=== PATIENT | female | born 1995 | race Caucasian/White ===

== ENCOUNTER 2018-12-12 20:33 | Inpatient (IN) | payer BC, OTHER ==
[2018-12-12] MEDS ORDERED: Zolpidem Tartrate 5 MG TAB PO PRN (22:26)
[2018-12-12] MEDS ORDERED: Butorphanol Tartrate 1 MG/ML VIAL SLOW IVP PRN (22:26)
[2018-12-12] MEDS ORDERED: NS / Oxytocin 40 units/1000ml 1,000 ML IV PRN (22:26)
[2018-12-12] MEDS ORDERED: Carboprost 250 MCG/ML AMP IM PRN (22:26)
[2018-12-12] MEDS ORDERED: Promethazine HCl 25 MG/ML VIAL IM PRN (22:26)
[2018-12-12] MEDS ORDERED: Ondansetron PF 4 MG/2 ML Vial IVP PRN (22:26)
[2018-12-12] MEDS ORDERED: Lidocaine 1% (PF) 30 ML VIAL SC PRN (22:30)
[2018-12-12] MEDS ORDERED: HYDROcodone/Acetaminophen 5/325 mg Tablet PO PRN ×2 (22:30)
[2018-12-12] MEDS ORDERED: Ibuprofen 800 MG TAB PO PRN (22:30)
[2018-12-12] MEDS ORDERED: Misoprostol 200 MCG TAB PR PRN (22:30)
[2018-12-12] MEDS ORDERED: NS w/ Oxytocin 10 units 500 ML IV SCH (22:30)
[2018-12-12] MEDS ORDERED: Methylergonovine 0.2 MG/ML VIAL IM PRN (22:30)
[2018-12-12] MEDS ORDERED: Diphenoxylate HCl/Atropine Tablet PO PRN ×2 (22:30)
--- NOTE | 2018-12-12 22:36 | PDOC.LDHP ---
Labor and Delivery H&P Chief complaint: scheduled induction HPI: 23 y/o at 39w 4d presents for term induction of labor. Due date: 12/15/18 Grav: 1 Para: 0 Current complications: none Abnormal US findings: No Current medications: pre- vitamins Allergies/Adverse Reactions: Allergies Allergy/AdvReac Type Severity Reaction Status Date / Time No Known Allergies Allergy Verified 07/10/13 17:38 - Physical Exam Vital signs reviewed and normal: yes General: NAD, resting Lungs: nonlabored breathing Abdomen: gravid Extremeties: no edema FHT: category 1 - Assessment L&D Assessment: elective induction at term - Plan Plan: admit to L&D, cervical ripening
[2018-12-12] MEDS ORDERED: Misoprostol 100 MCG TAB ONE (22:45)
[2018-12-12 22:51] LABS: Hemoglobin 11.2 g/dL (12.0-16.0); Mean Corpuscular HGB CONC 32.6 g/dL (32.0-36.0); Mean Corpuscular Hemoglobin 30.4 pg (27.0-31.0); Mean Corpuscular Volume 93.1 fL (78.0-98.0); Mean Platelet Volume 9.6 fL (7.4-10.4); Platelet Count 246 thou/uL (130-400); White Blood Cell (WBC) Count 9.4 thou/uL (4.8-10.8)
[2018-12-12] MEDS: Misoprostol 100 MCG TAB VAG SCH (22:53)
[2018-12-12] MEDS: Lactated Ringer's 1,000 ML IV SCH (22:55)
[2018-12-12 23:28] VITALS: BMI 35.4
[2018-12-12 23:32] LABS: Syphilis Antibody Nonreactive (Nonreactive); Syphilis Antibody Index 0.04 S/CO (<1.00 Non-Reactive)
[2018-12-12 23:33] LABS: HBSAg Index 0.49 S/CO (0-0.99); Hep B Surf Ag Non-Reactive S/CO (NonReactive)
[2018-12-13] MEDS: Misoprostol 100 MCG TAB VAG SCH ×2 (02:47→06:46)
[2018-12-13] MEDS: Lactated Ringer's 1,000 ML IV SCH ×2 (06:05→13:43)
[2018-12-13] MEDS: NS w/ Oxytocin 10 units 500 ML IV SCH ×3 (06:45→17:21)
[2018-12-13] MEDS ORDERED: Fentanyl 4 mcg/Bup 0.1% Cadd 100 ML ONE ×2 (12:10→18:49)
[2018-12-13] MEDS ORDERED: Lidocaine 1.5%/Epinephrine 1:200,000 5 ML AMPUL IJ ONE (12:56)
[2018-12-13] MEDS ORDERED: Ondansetron PF 4 MG/2 ML Vial IVP PRN (13:11)
[2018-12-13] MEDS ORDERED: Lactated Ringer's 500 ML IV PRN (13:11)
[2018-12-13] MEDS ORDERED: Acetaminophen 325 MG TAB PO PRN (13:11)
[2018-12-13] MEDS ORDERED: Eucerin (Mineral Oil/Petrolatum,White) 30 gm Jar TOP PRN (13:11)
[2018-12-13] MEDS ORDERED: diphenhydrAMINE 50 MG/ML VIAL IVP PRN (13:11)
[2018-12-13] MEDS ORDERED: Promethazine HCl 25 MG/ML VIAL IM PRN (13:11)
[2018-12-13] MEDS ORDERED: Naloxone HCl 0.4 mg/ml Vial IVP PRN ×2 (13:11)
[2018-12-13] MEDS ORDERED: ePHEDrine/0.9% NaCl/PF SYRINGE 50 mg/10 ml SLOW IVP PRN (13:11)
[2018-12-13] MEDS ORDERED: Communication Order-Pharmacy FS SCH (13:15)
[2018-12-13] MEDS: Fentanyl 4 mcg/Bupivacaine 0.1% Cassette 100 ML EPIDURAL SCH ×2 (13:36→18:53)
[2018-12-14] MEDS ORDERED: Misoprostol 200 MCG TAB ONE (00:17)
--- NOTE | 2018-12-14 00:48 | PDOC.PP ---
Post Progress Note Post Day #: 1 PO intake tolerated: yes Weight Weight 240 lb - Physical Examination General: NAD Cardiovascular: no m/r/g, RRR Respiratory: clear to auscultation bilaterally, non-labored breathing Abdominal: + bowel sounds, lochia, no distention, appropriately TTP Extremities: negative homans (B) Neurological: no gross focal deficits Psychiatric: A&Ox3, normal affect Result Diagrams: 12/12/18 22:14 Additional Labs: Post Labs Blood Type A POSITIVE 12/12/18 22:14 Hep Bs Antigen Non-Reactive S/CO (NonReactive) 12/12/18 22:14 - Assessment/Plan Pt s/p labor and delivery late yesterday evening. Cytotec 800mcg placed OR and pt is stable. Continue routine care.
[2018-12-14] MEDS ORDERED: Bisacodyl 10 MG SUPP PR PRN (02:57)
[2018-12-14] MEDS ORDERED: Benzocaine/Menthol 20-0.5% 60 ML CAN TOP PRN (02:57)
[2018-12-14] MEDS ORDERED: NS / Oxytocin 40 units/1000ml 1,000 ML IV SCH (02:57)
[2018-12-14] MEDS ORDERED: HYDROcodone/Acetaminophen 5/325 mg Tablet PO PRN ×2 (02:57)
[2018-12-14] MEDS ORDERED: Ondansetron PF 4 MG/2 ML Vial IVP PRN (02:57)
[2018-12-14] MEDS ORDERED: Zolpidem Tartrate 5 MG TAB PO PRN (02:57)
[2018-12-14] MEDS ORDERED: Promethazine HCl 25 MG/ML VIAL IM PRN (02:57)
[2018-12-14] MEDS ORDERED: diphenhydrAMINE 25 MG CAP PO PRN (02:57)
[2018-12-14] MEDS ORDERED: Methylergonovine 0.2 MG/ML VIAL IM PRN (02:57)
[2018-12-14] MEDS ORDERED: Milk Of Magnesia 30 ML UDCUP PO PRN (02:57)
[2018-12-14] MEDS ORDERED: Misoprostol 200 MCG TAB VAG PRN (02:57)
[2018-12-14] MEDS ORDERED: Lanolin Ointment 7 GM TUBE TOP PRN (02:57)
[2018-12-14] MEDS ORDERED: Preparation H Ointment 28 GM TUBE PR PRN (02:57)
[2018-12-14] MEDS: Lactated Ringer's 1,000 ML IV SCH (03:17)
[2018-12-14] MEDS: Misoprostol 100 MCG TAB VAG SCH ×3 (03:20→03:22)
[2018-12-14 05:45] LABS: Hemoglobin 10.5 g/dL (12.0-16.0); Mean Corpuscular HGB CONC 32.8 g/dL (32.0-36.0); Mean Corpuscular Hemoglobin 30.9 pg (27.0-31.0); Mean Corpuscular Volume 94.1 fL (78.0-98.0); Mean Platelet Volume 9.4 fL (7.4-10.4); Platelet Count 214 thou/uL (130-400); RBC Distribution Width 12.9 % (11.5-14.5); White Blood Cell (WBC) Count 17.8 thou/uL (4.8-10.8)
[2018-12-14] MEDS: Ibuprofen 800 MG TAB PO SCH ×3 (06:42→22:05)
[2018-12-14] MEDS: Ferrous Sulfate 325 MG TAB PO SCH ×2 (07:59→18:12)
[2018-12-14] MEDS: Prenatal Vitamin 1 TAB PO SCH (08:35)
[2018-12-14] MEDS ORDERED: Adacel (T-DAP) 0.5 ML SYRINGE IM ONE (09:00)
[2018-12-14] MEDS ORDERED: Varicella virus, LIVE 0.5 ML VIAL SC ONE (09:00)
[2018-12-14] MEDS ORDERED: Measles/Mumps/Rubella 10 MCG/0.5 ML VIAL SC ONE (09:00)
[2018-12-14] MEDS: Docusate Calcium (SURFAK) 240 MG CAP PO SCH ×2 (10:46→22:06)
[2018-12-14] MEDS ORDERED: Bupivacaine 0.25% HCL 30 ML VIAL ONE (11:11)
[2018-12-14] MEDS ORDERED: Bupivacaine HCl 0.25%/Epi 0.0005/PF 10 ML VIAL FS ONE (11:11)
[2018-12-15 00:19] VITALS: TEMP 97.7
--- NOTE | 2018-12-15 00:52 | PDOC.PP ---
Post Progress Note Post Day #: 2 Subjective: Doing well, no new concerns or questions PO intake tolerated: yes Flatus: yes Ambulation: yes Vital Signs (12 hours) Temp Pulse Resp BP Pulse Ox 12/14/18 20:25 97.7 F 72 18 112/69 99 Weight Weight 240 lb Vitals reviewed since arrival to - Physical Examination Cardiovascular: no m/r/g Respiratory: clear to auscultation bilaterally Abdominal: + bowel sounds, lochia, no distention, appropriately TTP Extremities: negative homans (B) Neurological: no gross focal deficits Psychiatric: A&Ox3, normal affect Result Diagrams: 12/14/18 05:16 Additional Labs: Post Labs Blood Type A POSITIVE 12/12/18 22:14 Hep Bs Antigen Non-Reactive S/CO (NonReactive) 12/12/18 22:14 (1) Vaginal delivery Code(s): O80 - ENCOUNTER FOR FULL-TERM UNCOMPLICATED DELIVERY Status: Acute - Assessment/Plan Assessment and plan: 1. PPD2 and desires dsch to home in AM hours. as she delivered at late evening, I offered her to stay until Sunday (tomorrow AM). Patient feels well and desires home today Sunday in the AM hours. F/U in 2-4 weeks with [facility]
[2018-12-15] MEDS: Ibuprofen 800 MG TAB PO SCH ×2 (06:07→14:53)
[2018-12-15] MEDS: Ferrous Sulfate 325 MG TAB PO SCH (07:26)
[2018-12-15 08:40] VITALS: BP 122/71
[2018-12-15] MEDS: Docusate Calcium (SURFAK) 240 MG CAP PO SCH (09:32)
[2018-12-15] MEDS: Prenatal Vitamin 1 TAB PO SCH (09:32)
--- NOTE | 2018-12-17 07:37 | DN ---
DATE OF PROCEDURE: 12/13/2018 PREOPERATIVE DIAGNOSIS: Intrauterine at 39 weeks and 5 days with a term induction of labor. POSTOPERATIVE DIAGNOSIS: Intrauterine at 39 weeks and 5 days with a term induction of labor. PROCEDURE: Spontaneous vaginal delivery over first-degree laceration of the vagina and perineum. FINDINGS: Viable female , weighing 3510 g or 7 pounds 12 ounces. Apgars of 8 and 9. QUANTITATIVE BLOOD LOSS: 400 mL. COMPLICATIONS: None. PROCEDURE IN DETAIL: The patient presented to [facility] where she was admitted to the labor and delivery service. The patient underwent a normal and uneventful labor with normal cervical dilatation until she was found to be completely dilated. She was then allowed to push and was able to bring the baby down and delivered the baby in a vertex presentation without difficulties. Once the head delivered in occiput anterior position, the shoulders followed spontaneously along with the rest of the baby's body. Once out the baby's mouth and nose were bulb suctioned. The cord was clamped and cut and baby was handed to waiting attendants. Cord blood was collected. Gentle fundal massage was performed and the placenta delivered intact without problems. Hemostasis was assured. Quantitative blood loss was calculated. Inspection of the cervix, vaginal vault, and perineum did not reveal any lacerations needing suturing. Once again, hemostasis was within normal limits and the patient was allowed to recover in the labor and delivery room. Baby went to nursery. Job ID: [id number]
== END 2018-12-15 15:15 | disposition home or self-care (01) | DRG 788 ==
LOC: L&D 20:33 → 3SW 12-14 02:57
PROVIDERS: ADMIT Obstetrics & Gynecology; ATTEND Obstetrics & Gynecology
PROC: 10D00Z1 Extraction of Products of Conception, Low, Open Approach (ICD-10-PCS; principal; 2018-12-13)
DX: O34.211 Maternal care for low transverse scar from previous cesarean delivery (principal); Z37.0 Single live birth; Z3A.39 39 weeks gestation of pregnancy
CPT/HCPCS: 36415; 51702; 85027; 86780; 86850; 86900; 86901; 87340; J2405; J3490; S0020